=== PATIENT | male | born 1995 | race Caucasian/White ===

== ENCOUNTER 2018-12-29 13:13 | Emergency (ER) | payer SELFPAY ==
[2018-12-29 14:26] LABS: Absolute Lymphocytes (CBC) 1.7 K/uL (0.7-4.9); Basophils % 1.1 % (0-1.3); Eosinophils % 19.8 % (0-4.4); Hematocrit 47.8 % (39.6-49.0); Lymphocytes % 22.8 % (15.3-44.8); MPV 10.5 fL (7.6-11.3); Monocytes % 5.6 % (3.3-12.3); RBC Red Blood Cell Count 5.59 M/uL (4.33-5.43)
[2018-12-29 14:31] LABS: Protime INR 1.03
[2018-12-29 14:35] LABS: Barbiturates NEGATIVE (NEGATIVE); Benzodiazepines NEGATIVE (NEGATIVE); Cocaine NEGATIVE (NEGATIVE); METHAMPHETAM NEGATIVE (NEGATIVE); Methadone NEGATIVE (NEGATIVE); Opiates NEGATIVE (NEGATIVE); Phencyclidine NEGATIVE (NEGATIVE); THC Cannibis NEGATIVE (NEGATIVE)
[2018-12-29 14:51] LABS: ALT/SGPT 90 U/L (12-78); AST/SGOT 37 U/L (15-37); Alkaline Phosphatase 60 U/L (45-117); BUN Blood Urea Nitrogen 8 mg/dL (7-18); Bicarbonate 26 mmol/L (21-32); Bilirubin Direct 0.2 mg/dL (0-0.2); Bilirubin Total 0.5 mg/dL (0.2-1.0); Glucose Level 125 mg/dL (74-106); Potassium 3.6 mmol/L (3.5-5.1); Sodium Level 141 mmol/L (136-145)
[2018-12-29 15:36] LABS: Urine White Blood Cell Casts OK
[2018-12-29 15:37] LABS: Blood Morphology Comment NOT SEEN (NOT SEEN); Platelet Estimate ADEQ
--- NOTE | 2018-12-29 18:07 | EDPHYS ---
Physician Documentation [facility] Name: Yovani Covarrubias Age: 23 yrs Sex: Male : 1995 Arrival Date: 12/29/2018 Time: 13:15 Bed 5 Private MD: ED Physician Rizwan Perales HPI: 12/29 14:35 This 23 yrs old Male presents to ER via Ambulatory with complaints of rn Suicidal Ideation. 14:35 The patient presents to the emergency department with suicide ideation, and the patient rn has a plan. Onset: The symptoms/episode began/occurred at an unknown time. Severity of symptoms: At their worst the symptoms were moderate in the emergency department the symptoms are unchanged. The patient has experienced similar episodes in the past. The patient has not recently seen a physician. Reports suicidal ideation, worse over last few days, recently lost his job due to stealing, spent night in half-way, has hurt himself in past, did not overdose or cut himself. Reports plan is to overdose on sleeping pills. . Historical: - Allergies: 13:27 No Known Allergies; tw2 - Home Meds: 13:27 citalopram 20 mg tab 1 tab once daily for Anxiety with Depression (Last Dose: tw2 11/28/2018 08:00) [Active]; - PMHx: 13:27 Anxiety; Depression; tw2 - PSHx: 13:27 None; tw2 - Immunization history:: Adult Immunizations up to date. - Social history:: Smoking status: Patient/guardian denies using tobacco. - Ebola Screening: : Patient denies travel to an Ebola-affected area in the 21 days before illness onset. - Family history:: not pertinent. - Hospitalizations: : No recent hospitalization is reported. ROS: 14:35 Constitutional: Negative for fever, chills, and weight loss, Eyes: Negative for injury, rn pain, redness, and discharge, Cardiovascular: Negative for chest pain, palpitations, and edema, Respiratory: Negative for shortness of breath, cough, wheezing, and pleuritic chest pain, Abdomen/GI: Negative for abdominal pain, nausea, vomiting, diarrhea, and constipation, MS/Extremity: Negative for injury and deformity, Skin: Negative for injury, rash, and discoloration, Neuro: Negative for headache, weakness, numbness, tingling, and seizure, Psych: Negative for homicidal ideation, and hallucinations Exam: 14:35 Constitutional: This is a well developed, well nourished patient who is awake, alert, rn and in no acute distress. Head/Face: Normocephalic, atraumatic. Eyes: Pupils equal round and reactive to light, extra-ocular motions intact. Lids and lashes normal. Conjunctiva and sclera are non-icteric and not injected. Cornea within normal limits. Periorbital areas with no swelling, redness, or edema. ENT: MMM Respiratory: No increased work of breathing, no retractions or nasal flaring. Skin: Warm, dry with normal turgor. Normal color with no rashes, no lesions, and no evidence of cellulitis. MS/ Extremity: Pulses equal, no cyanosis. Neurovascular intact. Full, normal range of motion. Equal circumference. Neuro: Awake and alert, GCS 15, oriented to person, place, time, and situation. Cranial nerves II-XII grossly intact. Motor strength 5/5 in all extremities. Sensory grossly intact. Cerebellar exam normal. Normal gait. Vital Signs: 13:25 BP 160 / 89; Pulse 111; Resp 18; Temp 97.4(TE); Pulse Ox 96% on R/A; Weight 113.4 kg tw2 (R); Height 5 ft. 10 in. (177.80 cm); Pain 0/10; 17:44 BP 145 / 92; Pulse 106; Resp 18; Temp 98.2; Pulse Ox 96% on R/A; aj 20:40 BP 153 / 91; Pulse 120; Resp 19; Temp 98.1; Pulse Ox 96% ; er 23:08 BP 145 / 89; Pulse 99; Resp 18; Temp 98.9; Pulse Ox 96% ; er 13:25 Body Mass Index 35.87 (113.40 kg, 177.80 cm) tw2 MDM: 13:32 Patient medically screened. rn 16:20 ED course: [facility] [place] to [facility] patient.. rn 18:04 Differential diagnosis: depression, suicidal ideation. Data reviewed: vital signs, rn nurses notes, lab test result(s), and as a result, I will admit patient. Counseling: I had a detailed discussion with the patient and/or guardian regarding: the historical points, exam findings, and any diagnostic results supporting the discharge/admit diagnosis, lab results, the need to transfer to another facility, [facility] does not immediately have the required specialist. ED course: Patient evaluated by Primo Uriostegui, recommend inpatient transfer to psychiatric facility. . 12/29 13:32 Order name: Acetaminophen; Complete Time: 15:28 rn 12/29 13:32 Order name: Basic Metabolic Panel; Complete Time: 15:28 12/29 13:32 Order name: CBC with Diff; Complete Time: 16:10 rn 12/29 13:32 Order name: ETOH Level; Complete Time: 15:28 rn 12/29 13:32 Order name: Hepatic Function; Complete Time: 15:28 rn 12/29 13:32 Order name: PT-INR; Complete Time: 14:35 rn 12/29 13:32 Order name: Ptt, Activated; Complete Time: 14:35 rn 12/29 13:32 Order name: Salicylate; Complete Time: 15:28 12/29 13:32 Order name: Urine Drug Screen; Complete Time: 15:28 12/29 14:16 Order name: Urine Dipstick--Ancillary (enter results) eb 12/29 14:32 Order name: CBC Smear Scan; Complete Time: 16:10 EDMS 12/29 21:36 Order name: TSH; Complete Time: 00:39 gs 12/29 13:32 Order name: EKG; Complete Time: 13:34 rn 12/29 13:32 Order name: EKG - Nurse/Tech; Complete Time: 18:27 rn 12/29 13:32 Order name: IV Saline Lock; Complete Time: 18:27 rn 12/29 13:32 Order name: Labs collected and sent; Complete Time: 14:42 rn 12/29 13:32 Order name: Urine Dipstick-Ancillary (obtain specimen); Complete Time: 14:42 rn Administered Medications: 21:59 Drug: NS 0.9% 1000 ml Route: IV; Rate: 1 bolus; Site: right antecubital; rr5 12/30 00:30 Follow up: Response: No adverse reaction; IV Status: Completed infusion; IV Intake: rr5 1000ml 12/29 21:59 Drug: Ativan 1 mg Route: IVP; Site: right antecubital; rr5 23:00 Follow up: Response: No adverse reaction rr5 Disposition: 12/29/18 18:06 Transfer ordered to Psych Facility. Diagnosis is Suicidal ideations. - Reason for transfer: Higher level of care. - Accepting physician is . - Condition is Stable. - Problem is an ongoing problem. - Symptoms are unchanged. Signatures: Dispatcher [employer] EDRizwan Cooper MD MD rn Wise, Tara, RN RN tw2 Kalia Voss MD MD gs Roque, Raymond RN RN rr5 Corrections: (The following items were deleted from the chart) 12/30 01:39 12/29 18:06 12/29/2018 18:06 Transfer ordered to Psych Facility. Diagnosis is Suicidal rr5 ideations. Reason for transfer: Higher level of care. Accepting physician is . Condition is Stable. Problem is an ongoing problem. Symptoms are unchanged. rn
--- NOTE | 2018-12-29 18:07 | ER ---
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 Transition of care: patient was not received from another setting of care. Onset of symptoms was December 29, 2018. Risk Assessment: Do you want to hurt yourself or someone else? Patient reports desire/thoughts of hurting themselves or someone else. Provider notified. Initial Sepsis Screen: Does the patient meet any 2 criteria? No. Patient's initial sepsis screen is negative. Does the patient have a suspected source of infection? No. Patient's initial sepsis screen is negative. Care prior to arrival: None. 13:21 Method Of Arrival: Ambulatory tw2 13:21 Acuity: ROSAURA 2 tw2 Triage Assessment: 13:25 General: Appears in no apparent distress. obese, Behavior is calm, cooperative, tw2 appropriate for age. Pain: Denies pain. Historical: - Allergies: 13:27 No Known Allergies; tw2 - Home Meds: 13:27 citalopram 20 mg tab 1 tab once daily for Anxiety with Depression (Last Dose: tw2 11/28/2018 08:00) [Active]; - PMHx: 13:27 Anxiety; Depression; tw2 - PSHx: 13:27 None; tw2 - Immunization history:: Adult Immunizations up to date. - Social history:: Smoking status: Patient/guardian denies using tobacco. - Ebola Screening: : Patient denies travel to an Ebola-affected area in the 21 days before illness onset. - Family history:: not pertinent. - Hospitalizations: : No recent hospitalization is reported. Screenin:27 Abuse screen: Denies threats or abuse. Nutritional screening: No deficits noted. tw2 Tuberculosis screening: No symptoms or risk factors identified. Fall Risk None identified. Assessment: 14:06 General: Appears in no apparent distress. comfortable, Behavior is calm, cooperative, aj appropriate for age. Pain: Denies pain. Neuro: Level of Consciousness is awake, alert, obeys commands, Oriented to person, place, time, situation, Appropriate for age. Respiratory: Airway is patent Respiratory effort is even, unlabored, Respiratory pattern is regular, symmetrical. Derm: Skin is intact, is healthy with good turgor, Skin is pink, warm \T\ dry. normal. 17:45 Reassessment: Patient appears in no apparent distress at this time. No changes from aj previously documented assessment. Patient and/or family updated on plan of care and expected duration. Pain level reassessed. Patient is alert, oriented x 3, equal unlabored respirations, skin warm/dry/pink. Patient denies pain at this time. 19:05 General: Appears in no apparent distress. comfortable, Behavior is calm, cooperative, rr5 appropriate for age, calm cooperative, no suicidal thoughts as verbalized by the patient. watching TV comfortably on bed. awaiting for mental facility acceptance.. Pain: Denies pain. Neuro: Level of Consciousness is awake, alert, obeys commands, Oriented to person, place, time, situation, Appropriate for age. Cardiovascular: Capillary refill < 3 seconds Patient's skin is warm and dry. Respiratory: Airway is patent Respiratory effort is even, unlabored, Respiratory pattern is regular, symmetrical. GI: No signs and/or symptoms were reported involving the gastrointestinal system. : No signs and/or symptoms were reported regarding the genitourinary system. EENT: No signs and/or symptoms were reported regarding the EENT system. Derm: Skin is intact, is healthy with good turgor, Skin is pink, warm \T\ dry. normal. Musculoskeletal: Capillary refill < 3 seconds, Range of motion: intact in all extremities. 21:00 Reassessment: Patient appears in no apparent distress at this time. Patient is alert, rr5 oriented x 3, equal unlabored respirations, skin warm/dry/pink. ED provider informed for the BP and CR result with order made and carried out. 22:00 Reassessment: Patient appears in no apparent distress at this time. Patient and/or rr5 family updated on plan of care and expected duration. Pain level reassessed. Patient is alert, oriented x 3, equal unlabored respirations, skin warm/dry/pink. 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 12/30 00:10 Reassessment: Patient appears in no apparent distress at this time. Patient is alert, rr5 oriented x 3, equal unlabored respirations, skin warm/dry/pink. [facility] accepted the case. awaiting for coordination. 00:54 Reassessment: report given to Hamida CONNELL at [facility]. jd3 01:30 Reassessment: Patient appears in no apparent distress at this time. Patient and/or rr5 family updated on plan of care and expected duration. Pain level reassessed. Patient is alert, oriented x 3, equal unlabored respirations, skin warm/dry/pink. endorsed to [facility] 15/15 breathing spontaneously at room air. no complaints made. Psych: 12/29 19:00 Safety Checks: Personal items have been removed. Pt has been placed in a hallway rr5 bed/chair. Visitors are present. Vital Signs: 13:25 BP 160 / 89; Pulse 111; Resp 18; Temp 97.4(TE); Pulse Ox 96% on R/A; Weight 113.4 kg tw2 (R); Height 5 ft. 10 in. (177.80 cm); Pain 0/10; 17:44 BP 145 / 92; Pulse 106; Resp 18; Temp 98.2; Pulse Ox 96% on R/A; aj 20:40 BP 153 / 91; Pulse 120; Resp 19; Temp 98.1; Pulse Ox 96% ; er 23:08 BP 145 / 89; Pulse 99; Resp 18; Temp 98.9; Pulse Ox 96% ; er 13:25 Body Mass Index 35.87 (113.40 kg, 177.80 cm) tw2 ED Course: 13:15 Patient arrived in ED. as 13:24 Triage completed. tw2 13:25 Arm band placed on. tw2 13:30 Safety Checks: Personal items have been removed. The door is open or patient has been aj placed in a hallway bed/chair. A family member and/or friend is present and encouraged to stay. Sitter present at this time. 13:32 Rizwan Perales MD is Attending Physician. rn 13:39 Melinda Davila, SARAH is Primary Nurse. aj 13:45 Safety Checks: Personal items have been removed. The door is open or patient has been aj placed in a hallway bed/chair. A family member and/or friend is present and encouraged to stay. Sitter present at this time. 14:00 Safety Checks: Personal items have been removed. The door is open or patient has been aj placed in a hallway bed/chair. A family member and/or friend is present and encouraged to stay. Sitter present at this time. 14:06 Patient has correct armband on for positive identification. aj 14:15 Safety Checks: Personal items have been removed. The door is open or patient has been aj placed in a hallway bed/chair. A family member and/or friend is present and encouraged to stay. Sitter present at this time. 14:30 Safety Checks: Personal items have been removed. The door is open or patient has been aj placed in a hallway bed/chair. A family member and/or friend is present and encouraged to stay. Sitter present at this time. 14:45 Safety Checks: Personal items have been removed. The door is open or patient has been aj placed in a hallway bed/chair. A family member and/or friend is present and encouraged to stay. Sitter present at this time. 15:00 Safety Checks: Personal items have been removed. The door is open or patient has been aj placed in a hallway bed/chair. A family member and/or friend is present and encouraged to stay. Sitter present at this time. 15:15 Safety Checks: Personal items have been removed. The door is open or patient has been aj placed in a hallway bed/chair. A family member and/or friend is present and encouraged to stay. Sitter present at this time. 15:30 Safety Checks: Personal items have been removed. The door is open or patient has been aj placed in a hallway bed/chair. A family member and/or friend is present and encouraged to stay. Sitter present at this time. 15:30 Inserted saline lock: 22 gauge in right antecubital area, using aseptic technique. aj Blood collected. 15:45 Safety Checks: Personal items have been removed. The door is open or patient has been aj placed in a hallway bed/chair. A family member and/or friend is present and encouraged to stay. Sitter present at this time. 16:00 Safety Checks: Personal items have been removed. The door is open or patient has been aj placed in a hallway bed/chair. A family member and/or friend is present and encouraged to stay. Sitter present at this time. 16:15 Safety Checks: Personal items have been removed. The door is open or patient has been aj placed in a hallway bed/chair. A family member and/or friend is present and encouraged to stay. Sitter present at this time. 16:15 called and spoke with Ravindra at the [facility]/ a screener is here evaluating eb another patient and will come see patient when she's done. 16:30 Safety Checks: Personal items have been removed. The door is open or patient has been aj placed in a hallway bed/chair. A family member and/or friend is present and encouraged to stay. Sitter present at this time. 16:45 Safety Checks: Personal items have been removed. The door is open or patient has been aj placed in a hallway bed/chair. A family member and/or friend is present and encouraged to stay. Sitter present at this time. 17:00 Safety Checks: Personal items have been removed. The door is open or patient has been aj placed in a hallway bed/chair. A family member and/or friend is present and encouraged to stay. Sitter present at this time. 17:15 Safety Checks: Personal items have been removed. The door is open or patient has been aj placed in a hallway bed/chair. A family member and/or friend is present and encouraged to stay. Sitter present at this time. 17:30 Safety Checks: Personal items have been removed. The door is open or patient has been aj placed in a hallway bed/chair. A family member and/or friend is present and encouraged to stay. Sitter present at this time. 17:32 faxed the patient records to the following facilities in the attempt to initiate eb transfer ; [facility], [facility], [facility], [facility], [facility], [facility], [facility], [facility], [facility], [facility], [facility], [facility], [facility]. 17:45 Safety Checks: Personal items have been removed. The door is open or patient has been aj placed in a hallway bed/chair. A family member and/or friend is present and encouraged to stay. Sitter present at this time. 18:00 Safety Checks: Personal items have been removed. The door is open or patient has been aj placed in a hallway bed/chair. A family member and/or friend is present and encouraged to stay. There are no family/friend visitors at this time Sitter present at this time. 18:15 Safety Checks: Personal items have been removed. The door is open or patient has been aj placed in a hallway bed/chair. A family member and/or friend is present and encouraged to stay. There are no family/friend visitors at this time Sitter present at this time. 18:30 Safety Checks: Personal items have been removed. The door is open or patient has been aj placed in a hallway bed/chair. A family member and/or friend is present and encouraged to stay. There are no family/friend visitors at this time Sitter present at this time. 18:45 Safety Checks: Personal items have been removed. The door is open or patient has been aj placed in a hallway bed/chair. A family member and/or friend is present and encouraged to stay. There are no family/friend visitors at this time Sitter present at this time. 19:00 Resting quietly. Safety Checks: Personal items have been removed. The door is open or er patient has been placed in a hallway bed/chair. A family member and/or friend is present and encouraged to stay. There are no family/friend visitors at this time Sitter present at this time. 19:15 Safety Checks: Personal items have been removed. The door is open or patient has been er placed in a hallway bed/chair. There are no family/friend visitors at this time Sitter present at this time. 19:29 Safety Checks: Personal items have been removed. The door is open or patient has been er placed in a hallway bed/chair. There are no family/friend visitors at this time Sitter present at this time. 19:51 Safety Checks: Personal items have been removed. The door is open or patient has been er placed in a hallway bed/chair. A family member and/or friend is present and encouraged to stay. Sitter present at this time. Family came and bring pt dinner. 20:04 Safety Checks: Personal items have been removed. The door is open or patient has been er placed in a hallway bed/chair. A family member and/or friend is present and encouraged to stay. Sitter present at this time. Family present. 20:17 Safety Checks: Personal items have been removed. The door is open or patient has been er placed in a hallway bed/chair. A family member and/or friend is present and encouraged to stay. Pt ate dinner, family present Sitter present at this time. 20:31 Safety Checks: Personal items have been removed. The door is open or patient has been er placed in a hallway bed/chair. A family member and/or friend is present and encouraged to stay. Sitter present at this time. Family present. 20:41 Safety Checks: Personal items have been removed. The door is open or patient has been er placed in a hallway bed/chair. A family member and/or friend is present and encouraged to stay. Sitter present at this time. 21:02 Safety Checks: Personal items have been removed. The door is open or patient has been er placed in a hallway bed/chair. A family member and/or friend is present and encouraged to stay. Sitter present at this time. 21:13 Safety Checks: Personal items have been removed. The door is open or patient has been er placed in a hallway bed/chair. A family member and/or friend is present and encouraged to stay. Sitter present at this time. 21:30 Safety Checks: Personal items have been removed. The door is open or patient has been er placed in a hallway bed/chair. A family member and/or friend is present and encouraged to stay. Sitter present at this time. 21:46 Safety Checks: Personal items have been removed. The door is open or patient has been er placed in a hallway bed/chair. A family member and/or friend is present and encouraged to stay. Sitter present at this time. 22:04 Safety Checks: Personal items have been removed. The door is open or patient has been er placed in a hallway bed/chair. A family member and/or friend is present and encouraged to stay. Sitter present at this time. 22:20 Safety Checks: Personal items have been removed. The door is open or patient has been er placed in a hallway bed/chair. A family member and/or friend is present and encouraged to stay. Sitter present at this time. 22:37 Safety Checks: Personal items have been removed. The door is open or patient has been er placed in a hallway bed/chair. A family member and/or friend is present and encouraged to stay. Sitter present at this time. 22:47 Safety Checks: Personal items have been removed. The door is open or patient has been er placed in a hallway bed/chair. A family member and/or friend is present and encouraged to stay. Sitter present at this time. 23:00 Safety Checks: Personal items have been removed. The door is open or patient has been er placed in a hallway bed/chair. There are no family/friend visitors at this time Sitter present at this time. Visitor left. 23:17 Safety Checks: Personal items have been removed. The door is open or patient has been er placed in a hallway bed/chair. There are no family/friend visitors at this time Sitter present at this time. 23:29 Safety Checks: Personal items have been removed. The door is open or patient has been er placed in a hallway bed/chair. There are no family/friend visitors at this time Sitter present at this time. 23:44 Safety Checks: Personal items have been removed. The door is open or patient has been er placed in a hallway bed/chair. There are no family/friend visitors at this time Sitter present at this time. 12/30 00:02 Safety Checks: Personal items have been removed. The door is open or patient has been er placed in a hallway bed/chair. There are no family/friend visitors at this time Sitter present at this time. ER staff inside room talking to pt. 00:14 Safety Checks: Personal items have been removed. The door is open or patient has been er placed in a hallway bed/chair. There are no family/friend visitors at this time Sitter present at this time. 00:33 Safety Checks: Personal items have been removed. The door is open or patient has been er placed in a hallway bed/chair. There are no family/friend visitors at this time Sitter present at this time. 00:43 Safety Checks: Personal items have been removed. The door is open or patient has been er placed in a hallway bed/chair. There are no family/friend visitors at this time Sitter present at this time. 01:00 Safety Checks: Personal items have been removed. The door is open or patient has been er placed in a hallway bed/chair. There are no family/friend visitors at this time Sitter present at this time. 01:15 Safety Checks: Personal items have been removed. The door is open or patient has been er placed in a hallway bed/chair. There are no family/friend visitors at this time Sitter present at this time. 01:30 No provider procedures requiring assistance completed. IV discontinued, intact, rr5 bleeding controlled, No redness/swelling at site. Pressure dressing applied. 01:32 Safety Checks: Personal items have been removed. The door is open or patient has been er placed in a hallway bed/chair. There are no family/friend visitors at this time Sitter present at this time. EMS arrived to [facility] to [facility]. Administered Medications: 12/29 21:59 Drug: NS 0.9% 1000 ml Route: IV; Rate: 1 bolus; Site: right antecubital; rr5 12/30 00:30 Follow up: Response: No adverse reaction; IV Status: Completed infusion; IV Intake: rr5 1000ml 12/29 21:59 Drug: Ativan 1 mg Route: IVP; Site: right antecubital; rr5 23:00 Follow up: Response: No adverse reaction rr5 Intake: 12/30 00:30 IV: 1000ml; Total: 1000ml. rr5 Outcome: 12/29 18:06 ER care complete, transfer ordered by MD. connell 12/30 01:30 Transferred by ground EMS to [facility], Transfer form completed. Note: rr5 mental facility Condition: stable Instructed on the need for transfer. 01:39 Patient left the ED. rr5 Signatures: Melinda Davila RN Alicia Jain Roman, MD MD rn Wise, Tara, RN RN tw2 Juanpablo Montez RN RN jd3 Tawnya Rangel Elsie er Roque, Raymond, RN RN rr5
[2018-12-29] MEDS ORDERED: NA CHLORIDE 0.9% 1,000 ML ONE (21:54)
[2018-12-29] MEDS ORDERED: LORazepam 2 MG/ML VIAL ONE (21:54)
[2018-12-29 22:07] LABS: Urine Blood NEGATIVE (NEG); Urine Glucose NEGATIVE (NEG); Urine Protein NEGATIVE (NEG)
== END 2018-12-30 01:39 ==
LOC: ER 13:13
DX: R45.851 Suicidal ideations (principal); F41.8 Other specified anxiety disorders
CPT/HCPCS: 36415; 80048; 80076; 80307; 80320; 80329; 81003; 84443; 85025; 85610; 85730; 96361; 96374; 99285; J7030

== ENCOUNTER 2023-02-06 11:04 | Emergency (ER) | payer SELFPAY ==
[2023-02-06 12:53] LABS: Absolute Lymphocytes (CBC) 2.3 K/uL (0.7-4.9); Barbiturates NEGATIVE (NEGATIVE); Benzodiazepines NEGATIVE (NEGATIVE); Cocaine NEGATIVE (NEGATIVE); Hematocrit 49.3 % (39.6-49.0); Lymphocytes % 21.5 % (15.3-44.8); MCV 85.6 fL (80-100); METHAMPHETAM NEGATIVE (NEGATIVE); MPV 10.4 fL (7.6-11.3); Methadone NEGATIVE (NEGATIVE); Opiates NEGATIVE (NEGATIVE); Phencyclidine NEGATIVE (NEGATIVE); Platelets 206 thou/uL (152-406); RBC Red Blood Cell Count 5.76 M/uL (4.33-5.43); THC Cannibis POSITIVE (NEGATIVE)
[2023-02-06 12:57] LABS: ALT/SGPT 48 U/L (16-61); AST/SGOT 21 U/L (15-37); Albumin 3.6 g/dL (3.4-5.0); Alkaline Phosphatase 69 U/L (45-117); BUN Blood Urea Nitrogen 12 mg/dL (7-18); Bicarbonate 30 mEq/L (21-32); Bilirubin Direct 0.1 mg/dL (0-0.2); Bilirubin Indirect, Calculated 0.2 mg/dL (0.2-0.8); Bilirubin Total 0.3 mg/dL (0.2-1.0); Glomerular Filtration Rate 110 ml/min (=/>90); Glucose Level 118 mg/dL (74-106); Potassium 4.1 mEq/L (3.5-5.1); Protein, Total 7.7 g/dL (6.4-8.2); Sodium Level 138 mEq/L (136-145)
[2023-02-06 13:25] LABS: Blood Morphology Comment NOT SEEN (NOT SEEN); Platelet Estimate ADEQ
--- NOTE | 2023-02-06 13:40 | ER ---
Nurse's Notes [facility] Name: Yovani Covarrubias Age: 27 yrs Sex: Male : 1995 Arrival Date: 02/06/2023 Time: 11:04 Bed 29 Private MD: Diagnosis: Suicidal ideations Presentation: 02/06 11:22 Chief complaint: Patient states: Off anxiety/depression for years. For about 1.5 months ll1 has SI. Was going to jump off a bridge. Coronavirus screen: Vaccine status: Patient reports receiving the 2nd dose of the covid vaccine. Client denies travel out of the [place] in the last 14 days. At this time, the client does not indicate any symptoms associated with coronavirus-19. Ebola Screen: Patient denies travel to an Ebola-affected area in the 21 days before illness onset. Initial Sepsis Screen: Does the patient meet any 2 criteria? No. Patient's initial sepsis screen is negative. Does the patient have a suspected source of infection? No. Patient's initial sepsis screen is negative. Risk Assessment: Do you want to hurt yourself or someone else? Patient reports no desire to harm self or others. Onset of symptoms was December 17, 2022. 11:22 Method Of Arrival: Ambulatory ll1 11:22 Acuity: ROSAURA 2 ll1 Triage Assessment: 02/07 17:25 General: Appears in no apparent distress. Behavior is calm, cooperative, appropriate ll1 for age. Pain: Denies pain. Historical: - Allergies: 02/06 11:21 No Known Allergies; ll1 - PMHx: 11:21 Anxiety; Depressive disorder; ll1 - PSHx: 11:21 None; ll1 - Immunization history:: Client reports receiving the 2nd dose of the Covid vaccine. - Social history:: Smoking status: Patient denies any tobacco usage or history of. - Family history:: not pertinent. Screenin:18 [facility] ED Fall Risk Assessment (Adult) History of falling in the last 3 months, ld1 including since admission No falls in past 3 months (0 pts). Abuse screen: Denies threats or abuse. Denies injuries from another. Nutritional screening: No deficits noted. Tuberculosis screening: No symptoms or risk factors identified. Assessment: 11:26 Reassessment: Pt placed in chairs, awaiting available private room, SI paper jl7 documentation will be completed once pt gets into room. 13:17 Reassessment: Received patient from fast track chairs - Sitter at bedside, [facility] ld1 document and sent to security, SI precautions initiated at this time. 14:52 Reassessment: Pt moved to hallway bed, sitter at bedside. jl7 19:00 Reassessment: Patient appears in no apparent distress at this time. Patient denies pain kl at this time. . 02/07 07:00 Reassessment: Report received from night shift supervisor RN. See SI paperwork for assessment ll1 details. 17:15 Reassessment: Report given to Trell at [facility]. ll1 18:37 Reassessment: No changes from previously documented assessment. Patient and/or family ll1 updated on plan of care and expected duration. Pain level reassessed. Patient is alert, oriented x 3, equal unlabored respirations, skin warm/dry/pink. Psych: 02/06 19:00 [place] Suicide Severity Screening: In the past month, have you wished you were kl or wished you could go to sleep and not wake up? Patient responds "No." "In the past month, have you actually had any thoughts of killing yourself?" Patient responds "no." pt reports no longer wishes to hurt himself "In your lifetime, have you ever done anything, started to do anything, or prepared to do anything to end your life?" thought no actual attempts. Subjective: Patient's mood is flat. Objective: Patient is cooperative, Speech is normal, Affect is flat. Interventions: pt in full view of nursing station. Safety Checks: screener at bedside. Pt denies substance abuse. Commitment: Patient will be a voluntary commitment. Vital Signs: 11:22 BP 154 / 110; Pulse 87; Resp 17; Temp 97.5; Pulse Ox 97% ; Weight 127.01 kg; Height 5 ll1 ft. 10 in. ; Pain 0/10; 02/07 17:22 BP 152 / 93; Pulse 89; Resp 18; Temp 97.2; Pulse Ox 98% on R/A; ll1 18:37 BP 148 / 89; Pulse 88; Resp 17; Temp 97.1; Pulse Ox 98% ; ll1 02/06 11:22 Body Mass Index 40.18 (127.01 kg, 177.8 cm) ll1 08/21 11:22 Pain Scale: Adult ll1 ED Course: 02/06 11:05 Patient arrived in ED. im 11:06 Concetta Cloud MD is Attending Physician. cp3 11:24 Triage completed. ll1 11:24 Arm band placed on. ll1 12:34 Acetaminophen Sent. bc6 12:34 Basic Metabolic Panel Sent. bc6 12:34 CBC with Diff Sent. bc6 12:34 ETOH Level Sent. bc6 12:34 Hepatic Function Sent. bc6 12:34 Salicylate Sent. bc6 12:34 Urine Drug Screen Sent. bc6 12:34 Inserted saline lock: 20 gauge in left antecubital area, using aseptic technique. Blood bc6 collected. 13:17 Jenny Albarado, RN is Primary Nurse. ld1 13:18 Patient has correct armband on for positive identification. Bed in low position. Call ld1 light in reach. Side rails up X2. Valuables given to security.. SI precautions initiated. 13:18 No provider procedures requiring assistance completed. ld1 14:39 contacted [facility] to have a screener evaluate pt. bd 16:51 faxed chart to [facility]. bd 02/07 05:45 Attending Physician role handed off by Concetta Cloud MD sp3 05:45 Supa Stanley MD is Attending Physician. sp3 06:14 faxed pt clinicals to the following facilities for placement; [facility], [facility], [address], [facility], [facility], [facility], [facility], [facility]. 12:25 IV discontinued, intact, bleeding controlled, No redness/swelling at site. Pressure ll1 dressing applied. 17:14 Attending Physician role handed off by Supa Stanley MD osito 17:14 Rickey Nunez MD is Attending Physician. osito 17:29 pt accepted in transfer to [facility] by dr Kingsley, admin approval given by Trell.bd 17:44 Provided Education on: n/a. ll1 Administered Medications: No medications were administered Medication: 17:25 VIS not applicable for this client. ll1 Outcome: 02/06 13:39 ER care complete, transfer ordered by . cp3 02/07 17:25 Condition: stable ll1 Instructed on the need for transfer. 17:44 Transferred by ground EMS to other acute care facility: [facility]. Transfer form ll1 completed. 18:38 Patient left the ED. ll1 Signatures: Jovana Toledo Kimberly, RN Rickey Villasenor MD MD cha Pinckney, Cwanza, MD MD cp3 Marlene Pedraza, RN SARAH jl7 Juan Harris RN RN ll1 Jenny Albarado RN RN [email or web address] Supa Stanley MD MD sp3 Isabelle James rv1 Jessica Ha 6 Lilliana Stein Corrections: (The following items were deleted from the chart) 02/06 11:22 11:21 PMHx: Anxiety; ll1 ll1 11:21 PMHx: Depression; ll1 ll1 11:21 PMHx: None; ll1 ll1 12:26 12:24 Reassessment: Pt placed in chairs, awaiting available private room, SI paper jl7 documentation will be completed once pt gets into room jl7 02/07 17:44 07:00 Reassessment: Report received from night shift supervisor RN joanne1 1
--- NOTE | 2023-02-06 13:40 | EDPHYS ---
Physician Documentation [facility] Name: Yovani Covarrubias Age: 27 yrs Sex: Male : 1995 Arrival Date: 02/06/2023 Time: 11:04 Bed 29 Private MD: ED Physician Rickey Nunez HPI: 02/06 13:21 This 27 yrs old Male presents to ER via Ambulatory with complaints of Suicidal Ideation.cp3 13:21 The patient is a 27-year-old male with a history of depression and anxiety who endorses cp3 that he stopped taking his meds several months ago secondary to financial hardship. Patient was having to work 2 jobs to afford paying rent and his medication. Patient says he had a "1 job because he can barely get out of bed in the morning secondary to his depression. The patient feels like his life is falling apart around him and has feelings of suicide. Patient endorses that his plan was to jump off the bridge in [place]. The patient was on an SSRI but he cannot recall the name of and gabapentin for anxiety. Patient wants inpatient treatment voluntarily. Historical: - Allergies: 11:21 No Known Allergies; ll1 - PMHx: 11:21 Anxiety; Depressive disorder; ll1 - PSHx: 11:21 None; ll1 - Immunization history:: Client reports receiving the 2nd dose of the Covid vaccine. - Social history:: Smoking status: Patient denies any tobacco usage or history of. - Family history:: not pertinent. ROS: 13:21 Constitutional: Negative for fever, chills, and weight loss, Eyes: Negative for injury, cp3 pain, redness, and discharge, ENT: Negative for injury, pain, and discharge, Neck: Negative for injury, pain, and swelling, Cardiovascular: Negative for chest pain, palpitations, and edema, Respiratory: Negative for shortness of breath, cough, wheezing, and pleuritic chest pain, Abdomen/GI: Negative for abdominal pain, nausea, vomiting, diarrhea, and constipation, Back: Negative for injury and pain, MS/Extremity: Negative for injury and deformity, Skin: Negative for injury, rash, and discoloration. 13:21 Psych: Positive for suicidal ideation. Exam: 13:21 Constitutional: This is a well developed, well nourished patient who is awake, alert, cp3 and in no acute distress. Head/Face: Normocephalic, atraumatic. Eyes: Pupils equal round and reactive to light, extra-ocular motions intact. Lids and lashes normal. Conjunctiva and sclera are non-icteric and not injected. Cornea within normal limits. Periorbital areas with no swelling, redness, or edema. ENT: Nares patent. No nasal discharge, no septal abnormalities noted. Tympanic membranes are normal and external auditory canals are clear. Oropharynx with no redness, swelling, or masses, exudates, or evidence of obstruction, uvula midline. Mucous membranes moist. Neck: Trachea midline, no thyromegaly or masses palpated, and no cervical lymphadenopathy. Supple, full range of motion without nuchal rigidity, or vertebral point tenderness. No Meningismus. Chest/axilla: Normal chest wall appearance and motion. Nontender with no deformity. No lesions are appreciated. Cardiovascular: Regular rate and rhythm with a normal S1 and S2. No gallops, murmurs, or rubs. Normal PMI, no JVD. No pulse deficits. Respiratory: Lungs have equal breath sounds bilaterally, clear to auscultation and percussion. No rales, rhonchi or wheezes noted. No increased work of breathing, no retractions or nasal flaring. Abdomen/GI: Soft, non-tender, with normal bowel sounds. No distension or tympany. No guarding or rebound. No evidence of tenderness throughout. Back: No spinal tenderness. No costovertebral tenderness. Full range of motion. Skin: Warm, dry with normal turgor. Normal color with no rashes, no lesions, and no evidence of cellulitis. MS/ Extremity: Pulses equal, no cyanosis. Neurovascular intact. Full, normal range of motion. Neuro: Awake and alert, GCS 15, oriented to person, place, time, and situation. Cranial nerves II-XII grossly intact. Motor strength 5/5 in all extremities. Sensory grossly intact. Cerebellar exam normal. Normal gait. 13:21 Psych: Behavior/mood is pleasant, cooperative, suicidal, Patient appears sad but recognizes it is worse than his baseline. Vital Signs: 11:22 BP 154 / 110; Pulse 87; Resp 17; Temp 97.5; Pulse Ox 97% ; Weight 127.01 kg; Height 5 ll1 ft. 10 in. ; Pain 0/10; 02/07 17:22 BP 152 / 93; Pulse 89; Resp 18; Temp 97.2; Pulse Ox 98% on R/A; ll1 18:37 BP 148 / 89; Pulse 88; Resp 17; Temp 97.1; Pulse Ox 98% ; ll1 02/06 11:22 Body Mass Index 40.18 (127.01 kg, 177.8 cm) ll1 02/06 11:22 Pain Scale: Adult ll1 Procedures: 02/06 13:21 EKG interpreted by me: Normal sinus rhythm with sinus arrhythmia, rate 79 no evidence cp3 of acute AR QT of 366. MDM: 11:06 Patient medically screened. cp3 13:21 Differential diagnosis: acute psychotic break, depression. Data reviewed: vital signs, cp3 nurses notes, lab test result(s), EKG. Management of patient was discussed with the following: Behavioral Health Provider: Will evaluate patient. 17:29 Consideration of Admission/Observation Escalation of care including cp3 admission/observation considered. Awaiting mental health evaluation for final disposition. 02/06 12:05 Order name: Acetaminophen; Complete Time: 13:25 cp3 02/06 13:25 Interpretation: ACETA < 2.5. cp3 02/06 12:05 Order name: Basic Metabolic Panel; Complete Time: 13:25 cp3 02/06 12:05 Order name: CBC with Diff; Complete Time: 15:16 cp3 02/06 13:25 Interpretation: WBC 10.60; RBC 5.76; HGB 16.3; HCT 49.3; MCV 85.6; MCH 28.4; MCHC 33.1; cp3 PLT 206; RDW 14.0; MPV 10.4; DANITZA% 43.2; LYM% 21.5; MN% 4.8; EOSINOPHIL % 29.5; BASO% 1.0; NEUT A 4.6; LYMA 2.3; MNA 0.5; EOSA 3.1; BASOA 0.1. 02/06 12:05 Order name: ETOH Level; Complete Time: 13:25 cp3 02/06 13:25 Interpretation: ETOH < 10. cp3 02/06 12:05 Order name: Hepatic Function; Complete Time: 13:25 cp3 02/06 13:25 Interpretation: AST 21; ALT 48; ALK 69; BILIT 0.3; BILID 0.1; IBILI, CALC 0.2; TP 7.7; cp3 ALB 3.6; GLOB 4.1; A/G 0.9. 02/06 12:05 Order name: Salicylate; Complete Time: 13:25 cp3 02/06 13:25 Interpretation: MARIPOSA < 2.2. cp3 02/06 12:05 Order name: Urine Drug Screen; Complete Time: 13:25 cp3 02/06 13:25 Interpretation: PCP NEGATIVE; BZO NEGATIVE; ANIBAL NEGATIVE; METHAMPHETAMINE NEGATIVE; THC cp3 POSITIVE; OPI NEGATIVE; VANCE NEGATIVE; METH NEGATIVE. 02/06 13:03 Order name: Manual Differential; Complete Time: 15:16 EDMS 02/06 12:05 Order name: EKG; Complete Time: 12:06 cp3 02/06 13:20 Order name: Diet Finger Food; Complete Time: 13:20 ld1 02/06 16:01 Order name: Diet Finger Food; Complete Time: 16:01 bd 02/07 05:49 Order name: Diet Finger Food; Complete Time: 05:50 kl 02/07 10:17 Order name: Diet Finger Food; Complete Time: 10:17 bd 02/07 13:24 Order name: Diet Finger Food; Complete Time: 13:25 aa5 02/06 12:05 Order name: EKG - Nurse/Tech; Complete Time: 12:34 cp3 02/06 12:05 Order name: IV Saline Lock; Complete Time: 12:34 cp3 02/06 12:05 Order name: Labs collected and sent; Complete Time: 12:34 cp3 02/06 12:05 Order name: Suicide Screening ([place]); Complete Time: 13:17 cp3 02/06 12:05 Order name: Misc. Order: sitter; Complete Time: 12:11 cp3 Administered Medications: No medications were administered Disposition Summary: 02/06/23 13:39 Transfer Ordered Transfer Location: Psych Facility cp3 Reason: Higher level of care cp3 Condition: Stable cp3 Problem: an ongoing problem cp3 Symptoms: have improved cp3 Accepting Physician: pending(02/07/23 18:38) ll1 Diagnosis - Suicidal ideations cp3 Forms: - Medication Reconciliation Form cp3 - SBAR form cp3 Signatures: Dispatcher [employer] Concetta Stanton MD MD cp3 Juan Harris RN RN ll1 Corrections: (The following items were deleted from the chart) 11: PMHx: Anxiety; ll1 ll1 11: PMHx: Depression; ll1 ll1 11: PMHx: None; ll1 ll1 13:25 13:25 NA 138; K 4.1; CL 107; CO2 30; ANION GAP 5.1; GLUC 118; BUN 12; CRE 0.96; GFR cp3 110; CA 8.8. cp3 02/07 18:38 02/06 13:39 pending cp3 ll1
--- NOTE | 2023-02-06 18:07 | EKG ---
Test Date: 2023-02-06 Test Time: 12:43:42 Conveyor Installer: BCW MEASUREMENT RESULTS: Intervals: Rate: 79 NC: 154 QRSD: 94 QT: 366 QTc: 419 [place]: P: 26 NC: 154 QRS: 88 T: 12 INTERPRETIVE STATEMENTS: Normal sinus rhythm with sinus arrhythmia Normal ECG No previous ECG available for comparison Electronically Signed On 02-06-23 17:59:55 CDT by Liam Sanchez
[2023-02-07 18:55] VITALS: BP 148/89; TEMP 97.1; O2SAT 98
== END 2023-02-07 18:38 ==
LOC: ER 11:04
DX: R45.851 Suicidal ideations (principal); F32.A Depression, unspecified; F41.9 Anxiety disorder, unspecified
CPT/HCPCS: 36415; 80048; 80076; 80143; 80179; 80307; 82077; 85025; 93005